=== PATIENT | male | born 1975 | race Caucasian/White ===

== ENCOUNTER → 2016-11-16 | Day surgery (SDC) | payer OTHER ==
[2016-11-09 08:50] VITALS: BMI 24.0
[~2016-11-16] VITALS: Ht 180.3 cm; Wt 80.0 kg
[~2016-11-16] MED LIST: ATROPINE SULFATE 0.1 MG/ML 5ML SYR IV PRN; EpHEDrine SULFATE INJ 50 MG/ML AMP IV PRN; KETO10TA PO; LIDOCAINE HCL 2% 2 ML VIAL (20MG/ML) ONE; MIDAZOLAM HCL 1 MG/ML 2ML VIAL ONE; OXYC-57 PO; PHENYLEPHRINE 100MCG/ML 5ML SYR ONE; PRLSR20 PO; PROPOFOL IV EMULSION 10 MG/ML 20 ML VIAL IV ONE; SODIUM CHLORIDE 0.9% 500ML 500 ML IV ONE
[2016-11-16 14:01] VITALS: Ht 180.3 cm; Wt 80.0 kg
--- NOTE | 2016-11-16 14:41 | Endo History and Physical ---
History & Physical Date of Service: Nov 16, 2016. Chief Complaint: F/U 5 year Referring Physician: History of Present Illness 41 yo CM who presents for colonoscopy secondary to family history of colon cancer (Father). Past Medical History Reflux Past Surgical History Hx Cardiac Surgery: No Hx Internal Defibrillator: No Hx Pacemaker: No Hx Abdominal Surgery: No Hx of Implantable Prosthesis: No Hx Post-Op Nausea and Vomiting: No Hx Cancer Surgery: No Hx Thoracic Surgery: No Hx Orthopedic: Yes (LT KNEE SURGERY, LT THUMB WITH BERYL) Hx Urinary Tract Surgery: No Family History Colon CA Social History Smoking Status: Never Smoker Hx Substance Use: No Hx Alcohol Use: Yes (OCCASIONAL) Allergies Coded Allergies: No Known Allergies (Unverified , 11/09/16) Current Medications Reported Home Medications Medications Dose Route/Sig Max Daily Dose Days Date Category Prilosec (Omeprazole) 20 Mg Capcr 20 Mg PO QAM 05/07/15 Reported Vital Signs Weight (Kilograms): 80.00 Height (Feet): 5 Height (Inches): 11 Date Time Temp Pulse Resp B/P Pulse Ox O2 Delivery O2 Flow Rate FiO2 11/16/16 14:09 36.8 73 16 120/83 99 Room Air Physical Exam General Appearance: WD/WN, no apparent distress Respiratory/Chest: Auscultation: breath sounds normal Cardiovascular: Heart Auscultation: RRR Abdomen: Bowel Sounds: normal Inspection & Palpation: soft, non-distended, no tenderness, guarding & rebound Assessment and Plan Assessment: 41 yo CM who presents for colonoscopy secondary to family history of colon cancer (Father). Plan: Proceed with colonoscopy.
--- NOTE | 2016-11-16 15:32 | GI REPORT ---
Procedure Date: 11/16/2016 2:52 PM Procedure: Colonoscopy Indications: Colon cancer screening in patient at increased risk: Colorectal cancer in father Medicines: Monitored Anesthesia Care Complications: No immediate complications. Estimated Blood Loss: Estimated blood loss: none. Procedure: Pre-Anesthesia Assessment: - Prior to the procedure, a History and Physical was performed, and patient medications and allergies were reviewed. The patient's tolerance of previous anesthesia was also reviewed. The risks and benefits of the procedure and the sedation options and risks were discussed with the patient. All questions were answered, and informed consent was obtained. Prior Anticoagulants: The patient has taken no previous anticoagulant or antiplatelet agents. ASA Grade Assessment: II - A patient with mild systemic disease. After reviewing the risks and benefits, the patient was deemed in satisfactory condition to undergo the procedure. After I obtained informed consent, the scope was passed under direct vision. Throughout the procedure, the patient's blood pressure, pulse, and oxygen saturations were monitored continuously. The Scope was introduced through the anus and advanced to the terminal ileum. The colonoscopy was performed without difficulty. The patient tolerated the procedure well. The quality of the bowel preparation was good. The terminal ileum, ileocecal valve, appendiceal orifice, and rectum were photographed. Findings: Non-bleeding internal hemorrhoids were found during retroflexion. The hemorrhoids were small. The exam was otherwise without abnormality. Impression: - Non-bleeding internal hemorrhoids. - The examination was otherwise normal. - No specimens collected. Recommendation: - Resume previous diet. - Continue present medications. - Repeat colonoscopy in 5 years for surveillance. - Return to primary care physician as previously scheduled. Chance Youssef, 11/16/2016 3:31:45 PM This report has been signed electronically. Note Initiated On: 11/16/2016 2:52 PM
--- NOTE | 2016-11-16 15:35 | Discharge Instructions ---
Endoscopy Patient Instructions Date / Procedure(s) Performed Nov 16, 2016. Colonoscopy Allergy Information Coded Allergies: No Known Allergies (Unverified , 11/09/16) Discharge Date / Findings Nov 16, 2016. Internal hemorrhoids Medication Instructions OK to resume all medications today as prescribed. Reported Home Medications Medications Dose Route/Sig Max Daily Dose Days Date Category Prilosec (Omeprazole) 20 Mg Capcr 20 Mg PO QAM 05/07/15 Reported Provider Instructions Activity Restrictions - No exercising or heavy lifting for 24 hours. - Do not drink alcohol the day of the procedure. - Do not drive a car or operate machinery until the day after the procedure. - Do not make any important decisions or sign important papers in 24 hours after the procedure. Following Day: - Return to full activity which may include returning to work/school. Diet Start your diet with liquids and light foods (jello, soup, juice, toast). Then eat your usual diet if not nauseated. Treatment For Common After Affects For mild abdominal pain, bloating, or excessive gas: - Rest - Eat lightly - Lie on right side Follow-Up Information Follow-up with as scheduled Anesthesia Information What You Should Know You have had a procedure that required some medicine to reduce anxiety and discomfort. This treatment is called moderate sedation. After receiving the treatment, you may be sleepy, but you will be able to breathe on your own. The effects of the treatment may last for several hours. Follow these instructions along with Activity/Diet recommendations noted above: * Do NOT do anything where dizziness or clumsiness would be dangerous. * Rest quietly at home today, then you can be up and about tomorrow. * Have a responsible person stay with you the rest of today. * You may have had an I.V. today. If so, you may take the dressing off later today. Recommendations Call your doctor if: * Trouble breathing * Continuous vomiting for more than 24 hours * Temperature above 101 degrees * Severe abdominal pain or bloating * Pain not relieved by pain medicine ordered * There is increased drainage or redness from any incision * A large amount of rectal bleeding greater than 2-3 tablespoons. (If you had a polyp/s removed or have hemorrhoids, a small amount of blood - from the rectum is to be expected.) * You have any unanswered questions or concerns. IN THE EVENT OF A SERIOUS EMERGENCY, GO TO THE NEAREST EMERGENCY ROOM Your discharge instructions were prepared by provider Chance Youssef. Patient Instructions Signature Page Jeovany Bejarano Patient (or Guardian) Signature/Date: I have read and understand the instructions given to me by my caregivers. Caregiver/RN/Doctor Signature/Date: The above-named patient and/or guardian has received patient instructions on this date. + Original Patient Signature Page (only) stays with chart. Please make copy for patient.
--- NOTE | 2016-11-16 15:36 | Anesthesiology Progress Note ---
Anesthesia Post Op Note Date & Time Nov 16, 2016 at 15:35 Vital Signs Pain Intensity: 0 Vital Signs Past 12 Hours Date Time Temp Pulse Resp B/P Pulse Ox O2 Delivery O2 Flow Rate FiO2 11/16/16 14:09 36.8 73 16 120/83 99 Room Air Notes Mental Status: alert / awake / arousable, participated in evaluation Pt Amnestic to Procedure: Yes Nausea / Vomiting: adequately controlled Pain: adequately controlled Airway Patency, RR, SpO2: stable & adequate BP & HR: stable & adequate Hydration State: stable & adequate Anesthetic Complications: no major complications apparent
[2016-11-16 15:59] VITALS: BP 113/84; PULSE 76; O2SAT 97
== END | disposition home or self-care (01) ==
LOC: C.GI 13:49
PROVIDERS: ATTEND Internal Medicine
DX: Z12.11 Encounter for screening for malignant neoplasm of colon (principal); K64.8 Other hemorrhoids; Z80.0 Family history of malignant neoplasm of digestive organs

== ENCOUNTER → 2016-12-07 | Outpatient (CLI) | payer OTHER ==
[~2016-12-07] MED LIST changes: -ATROPINE SULFATE 0.1 MG/ML 5ML SYR IV PRN; -EpHEDrine SULFATE INJ 50 MG/ML AMP IV PRN; -LIDOCAINE HCL 2% 2 ML VIAL (20MG/ML) ONE; -MIDAZOLAM HCL 1 MG/ML 2ML VIAL ONE; -PHENYLEPHRINE 100MCG/ML 5ML SYR ONE; -PROPOFOL IV EMULSION 10 MG/ML 20 ML VIAL IV ONE; -SODIUM CHLORIDE 0.9% 500ML 500 ML IV ONE
--- NOTE | 2016-12-07 07:34 | DIAGNOSTIC IMAGING REPORT ---
ULTRASOUND RIGHT UPPER QUADRANT ABDOMEN CLINICAL HISTORY: Right upper quadrant abdominal pain. COMPARISON STUDY: Chest CT dated 08/29/2007. TECHNIQUE: Real-time, grayscale, and color flow sonography of the right upper quadrant of the abdomen was performed. Images are reviewed in the transverse and longitudinal planes. FINDINGS: Liver: The liver is normal in size and echotexture. There is no intrahepatic biliary ductal dilatation. The main portal vein is patent. A 6 mm round well-circumscribed hyperechoic lesion in the right lobe is typical in appearance for a small hemangioma. Gallbladder: The gallbladder is normal in appearance. No gallstones are identified. There is no gallbladder wall thickening or pericholecystic fluid. A sonographic Fisher's sign is reportedly absent. The common bile duct measures up to 0.3 cm in diameter. Pancreas: Visualized portions of the pancreatic head and body are normal in appearance. Right kidney: Survey images of the right kidney demonstrate normal size and echotexture. There is no hydronephrosis. Ascites: None. IMPRESSION: 1. There is no acute sonographic abnormality identified in the right upper quadrant. No gallstones are identified. 2. A 6 mm well-circumscribed lesion in the right lobe of the liver is typical in appearance for a small hemangioma. This is likely unchanged from the [address] Electronically signed by: Suresh Ramsey M.D. 12/07/2016 7:32 AM Dictated Date/Time: 12/07/2016 7:30 AM
== END | disposition home or self-care (01) ==
LOC: C.ULTR 06:28
PROVIDERS: ATTEND Internal Medicine
DX: R10.11 Right upper quadrant pain (principal); K76.9 Liver disease, unspecified

== ENCOUNTER → 2016-12-17 | Outpatient (CLI) | payer OTHER ==
--- NOTE | 2016-12-17 10:46 | DIAGNOSTIC IMAGING REPORT ---
UPPER GI SERIES AND SMALL BOWEL FOLLOW-THROUGH CLINICAL HISTORY: Right upper quadrant abdominal pain. COMPARISON STUDY: Upper GI series June 17, 2007. FLUOROSCOPY TIME: 3 minutes. TECHNIQUE: Upper GI series was performed followed by small bowel follow-through. 34 fluoroscopic images were obtained. FINDINGS: Esophageal motility was normal. No esophageal mass or stricture was identified. No reflux was elicited. There was a small hiatal hernia. Gastric fold pattern was normal. Duodenum was normal. Jejunal and ileal fold patterns were normal. No small bowel mass was identified. Transit time to the cecum was normal at 70 minutes. The terminal ileum was slightly obscured but likely normal. IMPRESSION: 1. Small hiatal hernia. 2. Otherwise, unremarkable upper GI series and small bowel follow-through. Electronically signed by: Brian Fernandes M.D. 12/17/2016 10:45 AM Dictated Date/Time: 12/17/2016 10:41 AM
== END | disposition home or self-care (01) ==
LOC: C.RAD 09:00
PROVIDERS: ATTEND Internal Medicine
DX: R10.11 Right upper quadrant pain (principal); K44.9 Diaphragmatic hernia without obstruction or gangrene

== ENCOUNTER → 2017-02-22 | Outpatient (CLI) | payer OTHER ==
--- NOTE | 2017-02-22 16:17 | DIAGNOSTIC IMAGING REPORT ---
MRI OF THE LEFT KNEE CLINICAL HISTORY: Left knee pain. Recent injury. COMPARISON STUDY: No priors. TECHNIQUE: MRI of the left knee was performed utilizing proton density, T1, and T2-weighted sequences in the axial, sagittal, coronal planes. IV contrast was not administered for this examination. Note that interpretation is suboptimal without plain film correlate. FINDINGS: Menisci: There is a large oblique tear involving the body and posterior horn of the medial meniscus. The lateral meniscus is intact. Ligaments: The anterior and posterior cruciate ligaments are intact. The medial and lateral collateral ligaments are within normal limits. Extensor mechanism: The extensor mechanism is intact. Hoffa's fat pad is normal in appearance. Articular cartilage and bone: The articular cartilage is intact and well maintained all 3 compartments. There is bony contusion identified within the posterior aspect of the medial femoral condyle as well as the posterior aspect of the tibial plateau. Joint effusion: There is a small joint effusion. Soft tissues: The musculature surrounding the knee joint is normal in bulk and signal intensity. IMPRESSION: 1. There is a large oblique tear involving the body and posterior horn of the medial meniscus. 2. The lateral meniscus, the cruciate ligaments, and the collateral ligaments appear maintained. 3. Small joint effusion. 4. Mild bony contusions are present within the posterior aspect of the medial femoral condyle as well as the medial tibial plateau. Electronically signed by: Suresh Ramsey M.D. 02/22/2017 4:14 PM Dictated Date/Time: 02/22/2017 4:11 PM
== END | disposition home or self-care (01) ==
LOC: C.MRIBC 15:10
PROVIDERS: ATTEND Orthopaedic Surgery
DX: M25.562 Pain in left knee (principal)

== ENCOUNTER → 2017-03-03 | Day surgery (SDC) | payer OTHER ==
[2017-02-26 11:03] VITALS: Ht 180.3 cm; Wt 80.0 kg
[~2017-03-03] VITALS: Ht 180.3 cm; Wt 80.0 kg
[~2017-03-03] MED LIST changes: +ATROPINE SULFATE 0.1 MG/ML 5ML SYR IV PRN; +CEFAZOLIN 2000 MG/60 ML D5W IV SCH; +DEXAMETHASONE SOD INJ 4 MG/ML VIAL ONE; +EpINEphrine INJ 1MG/ML AMP 1 MG/ML AMP ONE; +FENTANYL CITRATE INJ 50 MCG/1 ML 2 ML VIAL IV PRN; +FENTANYL CITRATE INJ 50 MCG/1 ML 2 ML VIAL ONE; +KETOROLAC TROMETHAMINE 30 MG/ML VIAL IV. PRN; +KETOROLAC TROMETHAMINE 30 MG/ML VIAL ONE; +LACTATED RINGER'S 1000ML 1,000 ML IV SCH; +LIDOCAINE HCL 2% 2 ML VIAL (20MG/ML) ONE; +MIDAZOLAM HCL 1 MG/ML 2ML VIAL ONE; +ONDANSETRON INJ 2 MG/ML 2 ML VIAL IV PRN; +ONDANSETRON INJ 2 MG/ML 2 ML VIAL ONE; +OXYCODONE/ACETAMINOPHEN 5-325 TAB PO PRN; +PROPOFOL IV EMULSION 10 MG/ML 20 ML VIAL IV ONE; +ROPIVACAINE 0.5% 5 MG/ML 30 ML VIAL ONE; +SODIUM CHLORIDE 0.9% 1000ML 1,000 ML IV SCH
--- NOTE | 2017-03-03 07:01 | History & Physical Bridge - SC ---
H&P Re-Evaluation Bridge Note: I have examined the patient, reviewed the History & Physical and in the interval since the performance of the History & Physical I have noted the following changes of clinical significance: No changes noted
--- NOTE | 2017-03-03 07:49 | Discharge Instructions-SurgCtr ---
Discharge Instructions Date of Service March 03, 2017. Visit Reason for Visit: Left Knee Medial Meniscus Tear Discharge Discharge Diagnosis / Problem: LEFT KNEE MEDIAL MENISCUS TEAR Discharge Goals Goal(s): Decrease discomfort, Improve function, Therapeutic intervention Activity Recommendations Activity Limitations: per Instructions/Follow-up section Weightbearing Status: Left weightbearing (as tolerated) Anesthesia . Post Anesthesia Instructions: If you have had General Anesthesia or IV Sedation: * Do not drive today. * Resume driving when surgeon permits. * Do not make important decisions or sign legal documents today. * Call surgeon for: 1. Temperature elevations greater than 101 degrees F. 2. Uncontrollable pain. 3. Excessive bleeding. 4. Persistent nausea and vomiting. 5. Medication intolerance (nausea, vomiting or rash). * For nausea and vomiting use only clear liquids such as: tea, soda, bouillon until nausea subsides, then gradually increase diet as tolerated. * If you have any concerns or questions, call your surgeon's office. If physician is unavailable and it is an emergency, call 911 or go to the nearest emergency room. . Instructions / Follow-Up Instructions / Follow-Up MEDICATIONS: * Resume previous medications unless instructed otherwise by your surgeon. * Always take pain medication on a full stomach or with food to avoid upset stomach. * Do not drink alcohol or drive while taking narcotics. * Ibuprofen or Tylenol may be taken if narcotic not needed. NO IBUPROFEN WHILE TAKING TORADOL SPECIAL CARE INSTRUCTIONS: __ None X__ Keep extremity elevated and iced x 48 hours; apply ice 20-30 minutes 8-10 times/day. May remove at night. __ Crutches __ May discard when able __ Brace/Post-op shoe __ 24 hrs/day __ Remove at night _X_ Dressing __ Maintain until seen in office, may shower with plastic over site X__ Remove dressings in 24-48 hours and then may shower X__ Cover incisions with band-aids after showering __ Do not remove steri-strips Call physician if chills or temperature rises above 102 degrees or pain unrelieved by prescribed pain medications. Office [phone] FOLLOW UP IN 2 WEEKS Diet Recommendations Home Diet: resume previous diet Procedures Procedures Performed: Left Knee Arthroscopy, Partial Medial Meniscectomy Pending Studies Studies pending at discharge: no Medical Emergencies . Who to Call and When: Medical Emergencies: If at any time you feel your situation is an emergency, please call 911 immediately. . Non-Emergent Contact Non-Emergency issues call your: Surgeon . . "Provider Documentation" section prepared by Blaise Galvan. .
--- NOTE | 2017-03-03 07:52 | [facility] Post Operative Brief Note ---
Immediate Operative Summary Operative Date March 03, 2017. Pre-Operative Diagnosis Left Knee Medial Meniscus Tear Post-Operative Diagnosis Same Procedure(s) Performed Left Knee Arthroscopy, Partial Medial Meniscectomy Surgeon Dr. Olson Pet Training Instructor Surgeon(s) Peggy Galvan PA-C Estimated Blood Loss Minimal Findings Complex Medial Meniscus Tear Specimens None Anesthesia General Complication(s) None Disposition Recovery Room / PACU
[2017-03-03 08:29] VITALS: TEMP 36.4
--- NOTE | 2017-03-03 08:38 | OPERATIVE REPORT ---
DATE OF OPERATION: 03/03/2017 SURGEON: Chris Olson MD SEA KAYAKING GUIDE: BRENDAN Antony PREOPERATIVE DIAGNOSIS: Left degenerative medial meniscus tear. POSTOPERATIVE DIAGNOSIS: Same. PROCEDURE PERFORMED: 1. Left knee exam under anesthesia. 2. Left knee diagnostic arthroscopy. 3. Left knee arthroscopic partial medial meniscectomy. COMPLICATIONS: None. ESTIMATED BLOOD LOSS: Minimal. TOURNIQUET TIME: 21 minutes at 300 mmHg. ANESTHESIA: General. SPECIMENS: None. 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 He has been through conservative care without much relief. X-rays revealed minimal arthritic change. He had an MRI, which revealed a degenerative medial meniscus tear. He was initially seen by my partner Dr. Aguilar and indicated for surgery. Dr. Aguilar was unavailable, so the patient elected to have me performing this surgery. I had performed a right knee surgery on him 10 years or so ago for a similar problem. OPERATIVE FINDINGS: Examination under anesthesia of the left knee revealed just a trace knee effusion. Range of motion is 0-135. He had no instability. Fairly tight knee to valgus stressing. Kamron was negative for mechanical symptoms. No posterolateral rotatory instability. ARTHROSCOPIC FINDINGS: Arthroscopic findings revealed just a trace knee effusion. He had some mild age-related changes to the patellofemoral joint. In the intercondylar notch, the ACL and PCL were intact. In the lateral compartment, the articular surface of the meniscus was normal. In the medial compartment, there was a complex degenerative tear of the posterior horn of the medial meniscus. Some mild age-related changes to the medial compartment and medial femoral condyle. He did have a very tight medial compartment. OPERATIVE PROCEDURE: The patient was taken to the operating room, identified and placed on the operating table in the supine position. All contact areas were appropriately padded. IV antibiotics were provided by anesthesia team. A general anesthetic was implemented by anesthesia team. A left thigh tourniquet was then placed. The left knee was then prepped and draped in the usual sterile fashion. The left leg was elevated and exsanguinated with Esmarch and tourniquet was placed at 300 mmHg. Routine left knee arthroscopy was then performed through typical anteromedial and anterolateral portals. A superolateral outflow portal was established for outflow. I did have to resect a little bit the fat pad. We then used both motorized and hand controlled instruments to resect the unstable portion of this degenerative medial meniscus tear. There was fairly extensive tear that involved removing the majority of the posterior horn of the medial meniscus. Once this was complete, the arthroscopic instruments were placed throughout the knee joint. All extraneous debris was removed. The arthroscopic instruments were then removed from the joint and the portals were closed with 3-0 Prolene suture in a simple fashion. I injected the knee with 30 mL of a combination of 0.5% ropivacaine with epinephrine and 30 mg of Toradol. A sterile dressing with Xeroform, 4 x 4, sterile cast padding and Saturnino bandage were applied. The tourniquet was then let down for final tourniquet time of 21 minutes. The patient then brought out of general anesthesia and transferred to the recovery room in stable condition. The patient tolerated the procedure well with no complications. All needle and sponge counts were correct at the end of the operation. I attest to the content of the Intraoperative Record and any orders documented therein. Any exceptions are noted below. MARIA ESTHRE
[2017-03-03 09:02] VITALS: BP 117/79; PULSE 62; O2SAT 98
--- NOTE | 2017-03-03 09:02 | Anesthesia Progress Nt - [facility] ---
Anesthesia Post Op Note Date & Time March 03, 2017 at 09:02 Vital Signs Vital Signs Past 12 Hours Date Time Temp Pulse Resp B/P Pulse Ox O2 Delivery O2 Flow Rate FiO2 03/03/17 08:29 36.4 63 16 118/83 96 Room Air 03/03/17 08:26 76 98 03/03/17 08:26 76 03/03/17 08:25 109/84 03/03/17 08:22 36.4 71 9 109/84 100 Room Air 03/03/17 08:21 68 10 03/03/17 08:21 66 10 98 03/03/17 08:20 115/92 03/03/17 08:16 75 19 98 03/03/17 08:16 77 19 03/03/17 08:15 135/88 03/03/17 08:11 79 20 03/03/17 08:11 80 20 100 03/03/17 08:10 119/89 03/03/17 08:06 72 13 100 03/03/17 08:06 71 13 03/03/17 08:05 118/88 03/03/17 08:01 68 19 100 03/03/17 08:01 72 19 03/03/17 08:00 96/81 03/03/17 07:56 84 16 03/03/17 07:56 87 16 100 03/03/17 07:55 118/87 03/03/17 07:51 36.4 69 16 123/92 100 Mask 6 03/03/17 07:51 67 13 123/92 100 03/03/17 07:51 67 13 03/03/17 06:19 36.6 65 16 117/ 97 Room Air Notes Mental Status: alert / awake / arousable, participated in evaluation Pt Amnestic to Procedure: Yes Nausea / Vomiting: adequately controlled Pain: adequately controlled Airway Patency, RR, SpO2: stable & adequate BP & HR: stable & adequate Hydration State: stable & adequate Anesthetic Complications: no major complications apparent
== END | disposition home or self-care (01) ==
LOC: X.SURG 06:11
PROVIDERS: ATTEND Orthopaedic Surgery Sports Medicine
DX: M23.222 Derangement of posterior horn of medial meniscus due to old tear or injury, left knee (principal)